=== PATIENT | male | born 1935 | race Caucasian/White ===

== ENCOUNTER → 2016-10-28 | Outpatient (CLI) | payer MEDICARE | LOC: RAD 07:51 | PROVIDERS: ATTEND Family Medicine | DX: R31.0 Gross hematuria (principal); N28.1 Cyst of kidney, acquired | CPT/HCPCS: 74178; Q9967 ==

== ENCOUNTER 2017-01-11 15:08 | Emergency (ER) | payer MEDICARE ==
[~2017-01-11] VITALS: Ht 177.8 cm; Wt 102.7 kg
[2017-01-11 15:12] VITALS: BP 178/74
--- OUTSIDE RECORDS SUMMARY | 2017-01-11 15:12 | XMS REPORT | Referral Summary ---
Author Author [facility] Organization [facility] Address Unknown Phone Unavailable Care Team Providers Care Rn Gynecology Name Role Phone Perla Yanez PCP [phone] Encounter [facility] [id number] Date(s): 02/22/15 - 02/22/15 [facility] [address] [place] [address] [facility] Discharge Diagnosis: Hypothyroid Discharge Disposition: 01-Home or Self Care Attending Physician: Cesar Pemberton MD Admitting Physician: Cesar Pemberton MD Vital Signs Most recent to 1 oldest [Reference Range]: Peripheral Pulse 86 bpm Rate [60-100 bpm] (02/22/15 3:31 PM) Blood Pressure 120/65 mmHg [90-140/60-90 mmHg] (02/22/15 3:31 PM) Problem List Condition Effective Dates Status Health Status Informant Blood Resolved clot(Confirmed) Diabetes(Confirmed) Resolved Hysterectomy(Confirm Resolved ed) Prostate(Confirmed)1 Resolved 1Surgery Allergies, Adverse Reactions, Alerts No Known Medication Allergies Medications atorvastatin 80 mg oral tablet 0.5 tabs, Oral, Bedtime (once a day), 0 Refill(s) Start Date: 11/10/14 Status: Orderedglimepiride 2 mg oral tablet 1 tabs, Oral, Daily, 0 Refill(s) Start Date: 04/18/14 Status: Orderedlisinopril 10 mg oral tablet 1 tabs, Oral, Daily, 0 Refill(s) Start Date: 11/10/14 Status: OrderedmetFORMIN 500 mg oral tablet 1 tabs, Oral, BID, 0 Refill(s) Start Date: 04/18/14 Status: Orderedpropranolol 10 mg oral tablet See Instructions, TAKE ONE TABLET BY MOUTH TWICE DAILY, # 60 tabs, 2 Refill(s), eRx: [id number], TAKE ONE TABLET BY MOUTH TWICE DAILY Start Date: 01/23/15 Status: OrderedSynthroid 112 mcg (0.112 mg) oral tablet 112 mcg 1 tabs, Oral, Daily, # 30 tabs, 3 Refill(s), Pharmacy: [id number], 1 tabs Oral Daily Start Date: 04/11/15 Status: OrderedVitamin B-12 0 Refill(s) Start Date: 02/22/15 Status: Orderedwarfarin 5 mg oral tablet 1 tabs, Oral, Daily, 0 Refill(s) Start Date: 04/18/14 Status: Ordered Results No data available for this section Immunizations No data available for this section Procedures No data available for this section Social History Social History Type Response Smoking Status Never smoker Assessment and Plan Extracted from: Title: Office Visit Note Author: Cesar Pemberton MD Date: 02/22/15 Assessment/Plan Post ablation hypothyroidism. Plan: Continue Synthroid 125 g daily. Monitor thyroid function tests and titrate Synthroid as indicated. Proper way of taking thyroid medication to optimize absorption explained. Assured about unremarkable thyroid bed exam today. Return to clinic again in 3 months, sooner if with new problems. Addendum: Patient mentioned having a dry cough for the last 2 months. He has been afebrile. He denies being short of breath. Recommendation: Stop lisinopril 10 mg daily for one week. If cough clears up, we can try ARB. If not, he will need to restart lisinopril 10 mg daily. Workup for cough would be indicated then. Patient voiced understanding and will be getting in contact with Dr. Yanez, as needed with regards to this concern. Extracted from: Title: Ambulatory Patient Education Author: Cesar Pemberton MD Date: Family Medicine Hypothyroidism The thyroid is a large gland located in the lower front of your neck. The thyroid gland helps control metabolism. Metabolism is how your body handles food. It controls metabolism with the hormone thyroxine. When this gland is underactive (hypothyroid), it produces too little hormone. CAUSES These include: Absence or destruction of thyroid tissue. Goiter due to iodine deficiency. Goiter due to medications. Congenital defects (since ). Problems with the pituitary. This causes a lack of TSH (thyroid stimulating hormone). This hormone tells the thyroid to basket turner more hormone. SYMPTOMS Lethargy (feeling as though you have no energy) Cold intolerance Weight gain (in spite of normal food intake) Dry skin Coarse hair Menstrual irregularity (if severe, may lead to infertility) Slowing of thought processes Cardiac problems are also caused by insufficient amounts of thyroid hormone. Hypothyroidism in the is cretinism, and is an extreme form. It is important that this form be treated adequately and immediately or it will lead rapidly to retarded physical and mental development. DIAGNOSIS To prove hypothyroidism, your caregiver may do blood tests and ultrasound tests. Sometimes the signs are hidden. It may be necessary for your caregiver to watch this illness with blood tests either before or after diagnosis and treatment. TREATMENT Low levels of thyroid hormone are increased by using synthetic thyroid hormone. This is a safe, effective treatment. It usually takes about four weeks to gain the full effects of the medication. After you have the full effect of the medication, it will generally take another four weeks for problems to leave. Your caregiver may start you on low doses. If you have had heart problems the dose may be gradually increased. It is generally not an emergency to get rapidly to normal. HOME CARE INSTRUCTIONS Take your medications as your caregiver suggests. Let your caregiver know of any medications you are taking or start taking. Your caregiver will help you with dosage schedules. As your condition improves, your dosage needs may increase. It will be necessary to have continuing blood tests as suggested by your caregiver. Report all suspected medication side effects to your caregiver. SEEK MEDICAL CARE IF: Seek medical care if you develop: Sweating. Tremulousness (tremors). Anxiety. Rapid weight loss. Heat intolerance. Emotional swings. Diarrhea. Weakness. SEEK IMMEDIATE MEDICAL CARE IF: You develop chest pain, an irregular heart beat (palpitations ), or a rapid heart beat. MAKE SURE YOU: Understand these instructions. Will watch your condition. Will get help right away if you are not doing well or get worse. Document Released: 08/25/2006 Document Revised: 11/16/2012 Document Reviewed: [employer] Patient Information 2014 [facility]. No follow up information was provided.
[2017-01-11] MEDS ORDERED: SODIUM CHLORIDE FLUSH 10 ML SYR IV PRN (15:35)
[2017-01-11] MEDS ORDERED: SODIUM CHLORIDE FLUSH 3 ML SYR IV PRN (15:35)
[2017-01-11] MEDS ORDERED: BACITRACIN OINTMENT 0.9 GM PACKET TOP ONE (15:40)
[2017-01-11] MEDS ORDERED: TETANUS, DIPTHERIA, PERTUSSIS (ADACELL) VACCINE 0.5 ML VIAL IM ONE (15:40)
[2017-01-11] MEDS ORDERED: METF500T4 PO (15:48)
[2017-01-11] MEDS ORDERED: CYAN10006 PO (15:48)
[2017-01-11] MEDS ORDERED: WRF5T PO (15:48)
[2017-01-11] MEDS ORDERED: LVT.025T PO (15:48)
[2017-01-11 15:49] LABS: BASOPHILS % (AUTO) 0 % (0-2); EOSINOPHILS # (AUTO) 0.1 10^3uL; EOSINOPHILS % (AUTO) 0 % (0-4); LYMPHOCYTES # (AUTO) 1.2 X10^3; MEAN CORPUSCULAR HGB CONC 33.7 g/dL (31.0-37.0); MEAN CORPUSCULAR VOLUME 96 FL (80-100); MEAN PLATELET VOLUME 9.7 FL (6.0-9.5); MONOCYTES # (AUTO) 1.4 X10^3; MONOCYTES % (AUTO) 10 % (3-11); NEUTROPHILS # (AUTO) 11.4 X10^3; NEUTROPHILS % (AUTO) 81 % (51-67); PLATELET COUNT 269 10^3uL (150-450); WHITE BLOOD COUNT 14.21 10^3uL (4.0-11.0)
[2017-01-11 15:51] LABS: MEAN CORPUSCULAR HEMOGLOBIN 32.2 PG (26.0-34.0)
[2017-01-11 16:12] LABS: CALCULATED IONIZED CALCIUM 3.6 mg/dL (3.8-4.6); TOTAL PROTEIN 7.6 g/dL (6.4-8.5)
--- NOTE | 2017-01-11 16:48 | Diagnostic Imaging Report ---
INDICATION: Fall from ladder. EXAMINATION: Chest 01/11/2017. COMPARISON: 10/09/2008. FINDINGS: There are low lung volumes. Pulmonary vasculature is somewhat prominent but could be accentuated by the portable technique. The heart is normal in size. No definite pneumothorax is seen. There are no infiltrates or effusions. There appears to be multiple left posterior rib fractures which appear old. Overall examination limited and followup is recommended if symptoms persist. IMPRESSION: Pulmonary vasculature congestion versus crowding from the low lung volumes. Otherwise, no acute abnormality is seen; however, please see above discussion. Dictated by: Dictated on workstation # [id number]
--- NOTE | 2017-01-11 16:49 | Diagnostic Imaging Report ---
INDICATION: Fell from a ladder. EXAMINATION: Right hand 01/11/2017. FINDINGS: Three views of the hand. FINDINGS: There is diffuse degenerative disease in all interphalangeal joint spaces of the hand. No acute fractures or dislocations are appreciated. IMPRESSION: Degenerative findings with no acute process appreciated. Dictated by: Dictated on workstation # [id number]
--- NOTE | 2017-01-11 17:56 | Diagnostic Imaging Report ---
PROCEDURE: CT head and CT cervical spine without contrast. TECHNIQUE: Multiple contiguous axial images were obtained through the brain and cervical spine without the use of intravenous contrast. Sagittal and coronal reformations through the cervical spine were then performed. INDICATION: Fell from a ladder. EXAMINATION: CT brain, CT cervical spine without contrast 01/11/2017. COMPARISON: CT brain 10/10/2008. CT BRAIN / FINDINGS: Towards the vertex left paracentral, there is a linear hyperdensity suspicious for a small focus of hemorrhage. Mild hyperdensity tracking along the falx towards the vertex as well could represent a small amount of the subdural blood. Short-term interval followup recommended. The remaining brain demonstrates no other findings suggestive of an acute abnormality. There is no mass, mass-effect or midline shift. There is no hydrocephalus. No acute infarcts appreciated. There is diffuse atrophy. The calvarium is intact with no acute fractures appreciated. The paranasal sinuses and mastoid air cells appear unremarkable. There is nonspecific subcutaneous air inferior to the right ear and adjacent to the right mastoid air cells. Given there is no opacification of the mastoid air cells, this is unlikely emanating from a fracture in the mastoid region. It could be due to an open laceration with secondary subcutaneous air formation with abnormality in the chest another possibility. Clinical correlation would be recommended for any lacerations in this region. There are several hyperdensities noted along the external auditory canals bilaterally therefore likely of no significance although foreign body is felt to be less likely but not excluded. Correlate clinically. IMPRESSION: 1. Hypodensity towards the vertex as described above, suspicious for hemorrhage. A short-term interval follow up CT brain recommended for reevaluation of this area. The remaining brain demonstrates diffuse chronic changes. 2. There is subcutaneous air adjacent to the right mastoid air cells and right earlobe. See above discussion. Correlation clinically would be recommended. CT CERVICAL SPINE / FINDINGS: There is diffuse multilevel degenerative disease with multiple anterior spurs throughout the cervical spine and into the upper thoracic region. Intervertebral disc space narrowing in the upper thoracic levels also noted. There are no subluxations. Diffuse multilevel degenerative findings are noted with facet hypertrophy throughout the entire cervical spine. Heterotopic ossification noted posteriorly within the soft tissues in the lower neck which appear chronic. The lung apices demonstrate no acute disease. The prevertebral soft tissues demonstrate no evidence for acute abnormalities. Again noted is subcutaneous air on the right along the right earlobe and parotid gland of uncertain etiology, correlate clinically for a laceration in the region. IMPRESSION: 1. Subcutaneous air adjacent to the right mastoid air cells consistent with laceration, discussed with Dr. Dalal. Clinical exclusion of any residual foreign bodies in the region recommended given punctate hyperdensities which are along the inferior earlobe and anterior to the external auditory canal which may be chronic given similar findings on the left. 2. Underlying osseous structures appear intact. 3. Diffuse multilevel degenerative findings throughout the cervical spine with no acute fractures appreciated. 4. Other incidental findings, as discussed above. Dictated by: Dictated on workstation # [id number]
== END 2017-01-11 17:00 | disposition short-term general hospital (02) ==
LOC: ED 15:12
DX: S06.5X9A Traumatic subdural hemorrhage with loss of consciousness of unspecified duration, initial encounter (principal); S01.311A Laceration without foreign body of right ear, initial encounter; S20.211A Contusion of right front wall of thorax, initial encounter; M79.641 Pain in right hand; W11.XXXA Fall on and from ladder, initial encounter; Y92.009 Unspecified place in unspecified non-institutional (private) residence as the place of occurrence of the external cause; Z79.01 Long term (current) use of anticoagulants
CPT/HCPCS: 36415; 70450; 71010; 72125; 73130; 80053; 85025; 85610; 90471; 90715; 99284; A9270

== ENCOUNTER → 2017-01-11 | Outpatient (CLI) | payer MEDICARE ==
[~2017-01-11] MED LIST: CYAN10006 PO; LVT.025T PO; METF500T4 PO; WRF5T PO
== END ==
LOC: EMS 16:50
DX: S06.5X0A Traumatic subdural hemorrhage without loss of consciousness, initial encounter (principal); W11.XXXA Fall on and from ladder, initial encounter; Y92.008 Other place in unspecified non-institutional (private) residence as the place of occurrence of the external cause

== ENCOUNTER 2017-01-14 11:35 | Emergency (ER) | payer MEDICARE ==
[~2017-01-14] VITALS: Ht 177.8 cm; Wt 103.0 kg
[2017-01-14 12:58] LABS: BASOPHILS % (AUTO) 0 % (0-2); EOSINOPHILS % (AUTO) 0 % (0-4); LYMPHOCYTES # (AUTO) 0.7 X10^3; MEAN CORPUSCULAR HGB CONC 33.9 g/dL (31.0-37.0); MEAN CORPUSCULAR VOLUME 95 FL (80-100); MEAN PLATELET VOLUME 9.5 FL (6.0-9.5); MONOCYTES # (AUTO) 1.7 X10^3; MONOCYTES % (AUTO) 14 % (3-11); NEUTROPHILS # (AUTO) 9.7 X10^3; NEUTROPHILS % (AUTO) 80 % (51-67); PLATELET COUNT 229 10^3uL (150-450); WHITE BLOOD COUNT 12.16 10^3uL (4.0-11.0)
[2017-01-14 12:59] LABS: MEAN CORPUSCULAR HEMOGLOBIN 32.1 PG (26.0-34.0)
[2017-01-14 13:00] LABS: BILIRUBIN,URINE Negative (Negative); CLARITY,URINE Clear; COLOR,URINE Yellow; GLUCOSE, URINE (UA) 1+ (Negative); LEUKOCYTE ESTERASE ,URINE Negative (Negative); UROBILINOGEN,URINE 0.2 mg/dL (0.2-1.0)
[2017-01-14 13:06] LABS: URINE CENTRIFUGED VOLUME 12 mL
[2017-01-14 13:08] LABS: ALBUMIN 4.1 g/dL (3.4-5.0); CALCULATED IONIZED CALCIUM 3.7 mg/dL (3.8-4.6); TOTAL PROTEIN 7.7 g/dL (6.4-8.5)
--- NOTE | 2017-01-14 13:49 | Diagnostic Imaging Report ---
INDICATION: Abdominal pain. Abdominal series performed with a frontal chest radiograph and supine and upright abdominal films. FINDINGS: Frontal chest shows some bibasilar atelectatic change versus mild infiltrate. There is no pneumothorax or pleural fluid. The heart is normal in size. There is no free intraperitoneal air. There is moderate diffuse distention of colon with prominent stool in the right colon. There is no significant small bowel distention. IMPRESSION: Moderate diffuse distention of the colon with prominent stool in the right colon. The findings may represent ileus or less likely early obstruction. There is, however, no significant small bowel dilatation. There is no free air. There is mild bibasilar atelectatic change versus infiltrate. Dictated by: Dictated on workstation # [id number]
[2017-01-14 14:54] VITALS: BP 168/77
== END 2017-01-14 14:30 | disposition home or self-care (01) ==
LOC: ED 11:37
DX: K56.7 Ileus, unspecified (principal); R11.2 Nausea with vomiting, unspecified
CPT/HCPCS: 36415; 74022; 80053; 81003; 81015; 83690; 85025; 99282

== ENCOUNTER → 2017-01-23 | Outpatient (REF) | payer MEDICARE | LOC: LAB 11:33 | PROVIDERS: ATTEND Family Medicine | DX: Z86.718 Personal history of other venous thrombosis and embolism (principal); R29.6 Repeated falls | CPT/HCPCS: 85379 ==